=== PATIENT | male | born 1980 | race African-American/Black ===

== ENCOUNTER 2021-05-13 18:08 | Emergency (ER) | payer OTHER ==
[~2021-05-13] VITALS: Ht 172.7 cm; Wt 111.3 kg
--- NOTE | 2021-05-13 18:13 | PHYS DOC ---
General Adult EDM: Chief Complaint: CHEST PAIN HPI: HPI: """... I work nights... When I woke up this afternoon with chest pain here in my upper chest started about 1400 hrs..... 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 Pain is localized in the sternum and upper sternum area. Some radiation to left. Described as more of a discomfort. No pleuritic component. No history of previous cardiac issues. Patient has had GERD complaints in the past. Patient did take Pepcid and some antiacid but this was no relief to his discomfort. Initially pain is rated 7 -8 out of 10 currently rates it 5 out of 10. Patient does have a family history of father with IN at age 50. Patient denies any trauma. 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 Patient not had any recent travel outside the [place] area. No history of immune suppression. Up-to-date with vaccinations. Including Covid vaccination. Patient has not had this type of pain previously. (IVY BIRMINGHAM MD) Review of Systems: Review of Systems: Constitutional: Denies fever or chills Eyes: Denies change in visual acuity HENT: Denies nasal congestion or sore throat Respiratory: Denies cough or shortness of breath Cardiovascular: Complains of chest pain GI: Denies abdominal pain, nausea, vomiting, bloody stools or diarrhea : Denies dysuria Musculoskeletal: Denies back pain or joint pain Integument: Denies rash Neurologic: Denies headache, focal weakness or sensory changes Endocrine: Denies polyuria or polydipsia Lymphatic: Denies swollen glands Psychiatric: Denies depression or anxiety (IVY BIRMINGHAM MD) Family History: Family History: Father had an IN age 50 (IVY BIRMINGHAM MD) Current Medications: Current Meds: See nursing for home meds (IVY BIRMINGHAM MD) Allergies: Allergies: Allergies Coded Allergies Type Severity Reaction Last Updated Verified Sulfa (Sulfonamide Antibiotics) Allergy Intermediate 05/13/21 Yes (IVY BIRMINGHAM MD) Physical Exam: PE: Constitutional: Well developed, well nourished, mild distress, non-toxic appearance. [] HENT: Normocephalic, atraumatic, bilateral external ears normal, oropharynx moist, no oral exudates, nose normal. [] Eyes: PERRLA, EOMI, conjunctiva normal, no discharge. [] Neck: Normal range of motion, no tenderness, supple, no stridor. [] Cardiovascular:Bradycardia Heart rate regular rhythm, no murmur [. The] bedside monitor shows a sinus liz rhythm with no acute ectopy or morphology. Lungs & Thorax: Bilateral breath sounds equal at apex on auscultation [] Abdomen: Bowel sounds normal, soft, no tenderness, no masses, no pulsatile masses. [] Skin: Warm, dry, no erythema, no rash. [] Back: No tenderness, no CVA tenderness. [] Extremities: No tenderness, no cyanosis, no clubbing, ROM intact, no edema. No cording appreciated Neurologic: Alert and oriented X 3, normal motor function, normal sensory function, no focal deficits noted. [] Psychologic: Affect normal, judgement normal, mood normal. [] (IVY BIRMINGHAM MD) EKG: EKG: My interpretation EKG shows a sinus bradycardia at 59 bpm. Left axis. Some nonspecific anterior lateral changes but no findings of acute STEMI of contrala teral changes. There is some hyperdynamic findings in V2 and 3 and 4.. Abnormal EKG [] time of EKG is 1808 hrs. My interpretation second EKG shows a sinus bradycardia at 52 bpm. Left axis. Anterior lateral and T wave abnormalities. Time of this EKG is 2036 hours My interpretation of 3r. EKG 1 shows a sinus bradycardia 59 bpm. Leftward axis and T wave anterior lateral changes. Abnormal EKG. Time this EKG is 0140 hrs. (IVY BIRMINGHAM MD) Radiology/Procedures: Radiology/Procedures: [][address] [address] IMAGING REPORT Signed PATIENT: IMTIAZ FRANCISCOUNT: [id number] : 1980 LOCATION: ER AGE: 40 SEX: M EXAM STATUS: REG ER ORD. PHYSICIAN: IVY BIRMINGHAM MD REASON: cp PROCEDURE: PORTABLE CHEST 1V EXAMINATION: Chest radiograph. VIEWS: Single AP view of the chest COMPARISON: None INDICATION:40 years, Male, chest pain. FINDINGS: Normal cardiomediastinal silhouette. No focal consolidation. No pleural effusion or pneumothorax. No acute osseous process. IMPRESSION: No acute cardiopulmonary process. Electronically signed by: Deb Meyers DO (05/13/2021 6:39 PM) [facility] DICTATED AND SIGNED BY: DEB MEYERS DO DATE: 05/13/211837 CC: IVY BIRMINGHAM MD; PCP,NO ~MTH0 0 (IVY BIRMINGHAM MD) Heart Score: C/O Chest Pain: Yes HEART Score for Chest Pain: HEART Score for Chest Pain Response (Comments) Value History Moderately Suspicious 1 ECG Nonspecific Repolarizatio 1 Age < 45 0 Risk Factors 1 or 2 Risk Factors 1 Troponin >3 x Normal Limit 2 Total 5 Risk Factors: Risk Factors: DM, Current or recent (<one month) smoker, HTN, HLP, family history of CAD, obesity. Risk Scores: Score 0 - 3: 2.5% MACE over next 6 weeks - Discharge Home Score 4 - 6: 20.3% MACE over next 6 weeks - Admit for Clinical Observation Score 7 - 10: 72.7% MACE over next 6 weeks - Early Invasive Strategies (IVY BIRMINGHAM MD) Course & Med Decision Making: Course & Med Decision Making Pertinent Labs and Imaging studies reviewed. (See chart for details) Discussed presentation, testing with tx. plan with Dr. Campbell and Dr. Vogel. . . Admit to Dr. Vogel. Chest discomfort at 0200 hrs. is 1/10. Critical Care- interpretation, discussion with cardiology -90 min. Impression: 1. Chest Pain 2. + Trop 0.050 to 0.574 to 1.715 3. Non-stemi IN 4. Bradycardia []See Dr. Woodson chart after 0600 shift change for details after that time. (IVY BIRMINGHAM MD) Course & Med Decision Making The patient's repeat troponin this morning was switched over to the new high- sensitivity type. The number was greater than 6000. This is difficult to compared to the other troponin testing. Either way it is quite elevated. I spoke with cardiology again and Debi, nurse practitioner with cardiology service spoke with communications media professor and they would like to transfer the patient to [facility] for cardiac cath today. The patient will go by ambulance. (ZURDO WOODSON DO) Dragon Disclaimer: Dragon Disclaimer: This electronic medical record was generated, in whole or in part, using a voice recognition dictation system. (IVY BIRMINGHAM MD) Departure Departure: Impression: Primary Impression: NSTEMI (non-ST elevated myocardial infarction) Disposition: 02 SHORT TERM HOSPITAL Admitting Physician: Mae Vogel (ZURDO WOODSON DO) Condition: GUARDED Dragon Disclaimer This chart was dictated in whole or in part using Voice Recognition software in a busy, high-work load, and often noisy Emergency Department environment. It may contain unintended and wholly unrecognized errors or omissions. (IVY BIRMINGHAM MD) IVY BIRMINGHAM MD May 13, 2021 18:13 ZURDO WOODSON DO May 14, 2021 09:52
[2021-05-13] MEDS ORDERED: IV RINGERS SOLUTION,LACTATED 1,000 ML IV SCH (18:30)
[2021-05-13] MEDS ORDERED: ASPIRIN 325 MG TABLET PO ONE (18:30)
--- NOTE | 2021-05-13 18:39 | EKG ---
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
--- NOTE | 2021-05-13 18:41 | RAD ---
EXAMINATION: Chest radiograph. VIEWS: Single AP view of the chest COMPARISON: None INDICATION:40 years, Male, chest pain. FINDINGS: Normal cardiomediastinal silhouette. No focal consolidation. No pleural effusion or pneumothorax. No acute osseous process. IMPRESSION: No acute cardiopulmonary process. Electronically signed by: Tae Meyers DO (05/13/2021 6:39 PM) [facility]
[2021-05-13 18:51] LABS: BASO % 0 % (0-3); EOS % 0 % (0-3); HEMATOCRIT 41.6 % (39.0-53.0); HEMOGLOBIN 14.1 g/dL (13.0-17.5); LYMPH % 20 % (24-48); MEAN CORPUSCULAR HEMOGLOBIN 31 pg (25-35); MEAN CORPUSCULAR HGB CONC 34 g/dL (31-37); MEAN CORPUSCULAR VOLUME 93 fL (79-100); MONO # 0.6 x10^3/uL (0.0-1.1); MONO % 6 % (0-9); NEUT # 7.2 x10^3uL (1.8-7.7); NEUT % 73 % (31-73); PLATELET COUNT 257 x10^3/uL (140-400); RED BLOOD COUNT 4.48 x10^6/uL (4.30-5.70); RED CELL DISTRIBUTION WIDTH 13.5 % (11.5-14.5); WHITE BLOOD COUNT 9.8 x10^3/uL (4.0-11.0)
[2021-05-13 18:58] LABS: CALCIUM 9.1 mg/dL (8.5-10.1); GFR 99.2; POTASSIUM 3.7 mmol/L (3.5-5.1)
[2021-05-13 19:10] LABS: ALBUMIN 3.8 g/dL (3.4-5.0); DIRECT BILIRUBIN 0.1 mg/dL (0.0-0.2); TOTAL BILIRUBIN 0.2 mg/dL (0.2-1.0); TOTAL PROTEIN 7.5 g/dL (6.4-8.2)
[2021-05-13 20:38] LABS: BARBITURATES NEG (NEG); BENZODIAZEPINES NEG (NEG); CANNABINOIDS NEG (NEG); COCAINE NEG (NEG); METHADONE NEG (NEG); OPIATES NEG (NEG); PHENCYCLIDINE NEG (NEG)
[2021-05-13 20:40] LABS: AMPHETAMINE/METHAMPHETAMINE NEG (NEG)
[2021-05-13 20:43] LABS: CLARITY,URINE CLEAR; COLOR,URINE YELLOW
[2021-05-13 20:44] LABS: BACTERIA,URINE FEW /HPF (0-FEW); BILIRUBIN,URINE NEG (NEG); GLUCOSE,URINE NEG (NEG); NITRITE,URINE NEG (NEG); RBC,URINE 0 /HPF (0-2); SQUAMOUS EPITHELIAL CELL,UR FEW /LPF; UROBILINOGEN,URINE 0.2 mg/dL (0.2 mg/dL)
[2021-05-13] MEDS ORDERED: ENOXAPARIN ** NOTE DOSE ** SYRINGE SQ ONE (21:00)
[2021-05-13] MEDS ORDERED: ACETAMINOPHEN 325 MG TABLET PO PRN (21:30)
[2021-05-13] MEDS ORDERED: ONDANSETRON PF 4 MG/2 ML VIAL. IVP PRN (21:30)
--- NOTE | 2021-05-13 22:57 | EKG ---
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
--- NOTE | 2021-05-14 01:49 | EKG ---
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
[2021-05-14 07:55] LABS: CALCIUM 8.7 mg/dL (8.5-10.1); CREATININE 0.9 mg/dL (0.7-1.3)
[2021-05-14] MEDS ORDERED: IPRATRPIUM/ALBUTEROL 0.5/2.5MG 3 ML NEBU. NEB SCH (08:00)
[2021-05-14] MEDS ORDERED: ASPIRIN CHEWABLE 81 MG TABLET. PO SCH (09:00)
[2021-05-14] MEDS ORDERED: ENOXAPARIN ** NOTE DOSE ** SYRINGE SQ SCH (09:00)
[2021-05-14 09:20] LABS: BASO % 0 % (0-3); EOS % 0 % (0-3); HEMATOCRIT 38.9 % (39.0-53.0); HEMOGLOBIN 13.1 g/dL (13.0-17.5); LYMPH # 2.5 x10^3/uL (1.0-4.8); LYMPH % 22 % (24-48); MEAN CORPUSCULAR HEMOGLOBIN 31 pg (25-35); MEAN CORPUSCULAR HGB CONC 34 g/dL (31-37); MEAN CORPUSCULAR VOLUME 92 fL (79-100); MONO # 0.8 x10^3/uL (0.0-1.1); MONO % 7 % (0-9); NEUT # 8.4 x10^3uL (1.8-7.7); NEUT % 71 % (31-73); PLATELET COUNT 248 x10^3/uL (140-400); RED BLOOD COUNT 4.21 x10^6/uL (4.30-5.70); RED CELL DISTRIBUTION WIDTH 13.6 % (11.5-14.5); WHITE BLOOD COUNT 11.8 x10^3/uL (4.0-11.0)
[2021-05-14 09:30] VITALS: BP 110/71
--- NOTE | 2021-05-14 10:12 | PDOC2 ---
CARDIAC CONSULT DATE OF CONSULT DOS: DATE: 05/14/21 TIME: 10:08 REASON FOR CONSULT Reason for Consult Chest pain REFERRING PHYSICIAN Referring Physician Dr. Hughes SOURCE Source: Chart review, Patient HPI History of Present Illness This is a 40 yo male who presented from local correctional facility secondary to chest pain. Patient reports pain began yesterday afternoon. Located in his central chest. Describes as aching, pressure. Seemed to be worse with laying down. No associated dizziness, diaphoresis, shortness of breath, or nausea/vomiting. Pain persisted and became more intense so he came to the ED for further evaluation and treatment. Troponin noted to be elevated which prompted this consult. PAST MEDICAL HISTORY GI: GERD PAST SURGICAL HISTORY Past Surgical History: No pertinent history FAMILY HISTORY Family History: Diabetes, Heart Disease SOCIAL HISTORY Smoke: No ALCOHOL: none Drugs: None Lives: Roommate (inmate ) CURRENT MEDICATIONS Current Medications Current Medications Aspirin (Sy Aspirin) 325 mg 1X ONCE PO Last administered on 05/13/21at 19:03; Start 05/13/21 at 18:30; Stop 05/13/21 at 18:41; Status DC Lactated Ringer's 1,000 ml @ 1,000 mls/hr Q1H IV Last administered on 05/13at 19:03; Start 05/13/21 at 18:30; Stop 05/13/21 at 19:29; Status DC Enoxaparin Sodium (Lovenox 100mg Syringe) 100 mg 1X ONCE SQ Last administered on 05/13/21at 21:48; Start 05/13/21 at 21:00; Stop 05/13/21 at 21:22; Status DC Ondansetron HCl (Zofran) 4 mg PRN Q4HRS PRN IVP NAUSEA/VOMITING; Start 05/13/21 at 21:30; Stop 05/14/21 at 21:29 Acetaminophen (Tylenol) 650 mg PRN Q4HRS PRN PO FEVER > 100.3'F; Start 05/13/21 at 21:30; Stop 05/14/21 at 21:29 Albuterol/ Ipratropium (Duoneb) 3 ml RTQID NEB ; Start 05/14/21 at 08:00; Stop 05/15/21 at 07:59 Aspirin (Aspirin Chewable) 81 mg DAILY PO Last administered on 05/14/21at 09:00; Start 05/14/21 at 09:00 Enoxaparin Sodium (Lovenox 100mg Syringe) 100 mg BID SQ Last administered on 05/14/21at 08:56; Start 05/14/21 at 09:00 ALLERGIES Allergies: Coded Allergies: Sulfa (Sulfonamide Antibiotics) (Verified Allergy, Intermediate, 05/13/21) ROS Review of Systems 14 point ROS conducted with pertinent positives noted above in hPI PHYSICAL EXAM General: Alert, Oriented X3, Cooperative, No acute distress HEENT: Atraumatic Lungs: Clear to auscultation, Normal air movement Heart: Regular rate Abdomen: Soft, No tenderness Extremities: No edema, Normal pulses Skin: No breakdown Neuro: Normal speech, Sensation intact Psych/Mental Status: Mental status NL, Mood NL MUSCULOSKELETAL: Osteoarthritic changes both hands VITALS Vital Signs Vital Signs Date Time Temp Pulse Resp B/P (MAP) Pulse Ox O2 Delivery O2 Flow Rate FiO2 05/14/21 09:30 65 18 110/71 (84) 99 05/14/21 08:55 Room Air 05/13/21 18:11 97.9 LABS LABS Laboratory Tests Test 05/13/21 18:24 05/13/21 19:55 05/13/21 21:25 05/14/21 00:26 White Blood Count 9.8 x10^3/uL (4.0-11.0) Red Blood Count 4.48 x10^6/uL (4.30-5.70) Hemoglobin 14.1 g/dL (13.0-17.5) Hematocrit 41.6 % (39.0-53.0) Mean Corpuscular Volume 93 fL (79-100) Mean Corpuscular Hemoglobin 31 pg (25-35) Mean Corpuscular Hemoglobin Concent 34 g/dL (31-37) Red Cell Distribution Width 13.5 % (11.5-14.5) Platelet Count 257 x10^3/uL (140-400) Neutrophils (%) (Auto) 73 % (31-73) Lymphocytes (%) (Auto) 20 % (24-48) Monocytes (%) (Auto) 6 % (0-9) Eosinophils (%) (Auto) 0 % (0-3) Basophils (%) (Auto) 0 % (0-3) Neutrophils # (Auto) 7.2 x10^3uL (1.8-7.7) Lymphocytes # (Auto) 2.0 x10^3/uL (1.0-4.8) Monocytes # (Auto) 0.6 x10^3/uL (0.0-1.1) Eosinophils # (Auto) 0.0 x10^3/uL (0.0-0.7) Basophils # (Auto) 0.0 x10^3/uL (0.0-0.2) Prothrombin Time 10.1 SEC (9.4-11.4) Prothromb Time International Ratio 1.0 (0.9-1.1) Activated Partial Thromboplast Time 23 SEC (23-33) D-Dimer ([place]) 0.36 mg/L (0.00-0.50) Sodium Level 140 mmol/L (136-145) Potassium Level 3.7 mmol/L (3.5-5.1) Chloride Level 103 mmol/L (98-107) Carbon Dioxide Level 28 mmol/L (21-32) Anion Gap 9 (6-14) Blood Urea Nitrogen 10 mg/dL (8-26) Creatinine 1.0 mg/dL (0.7-1.3) Estimated GFR (Cockcroft-Gault) 99.2 Glucose Level 108 mg/dL (70-99) Calcium Level 9.1 mg/dL (8.5-10.1) Magnesium Level 2.0 mg/dL (1.8-2.4) Total Bilirubin 0.2 mg/dL (0.2-1.0) Direct Bilirubin 0.1 mg/dL (0.0-0.2) Aspartate Amino Transf (AST/SGOT) 18 U/L (15-37) Alanine Aminotransferase (ALT/SGPT) 36 U/L (16-63) Alkaline Phosphatase 93 U/L (46-116) Creatine Kinase 129 U/L (39-308) Troponin I Quantitative 0.050 ng/mL (0-0.055) 0.574 ng/mL (0-0.055) 1.715 ng/mL (0-0.055) SY-Dks-B-Type Natriuretic Peptide 11 pg/mL (0-124) Total Protein 7.5 g/dL (6.4-8.2) Albumin 3.8 g/dL (3.4-5.0) Lipase 160 U/L (73-393) Urine Collection Type Unknown Urine Color Yellow Urine Clarity Clear Urine pH 5.5 Urine Specific [place] >=1.030 Urine Protein Trace (NEG-TRACE) Urine Glucose (UA) Neg mg/dL (NEG) Urine Ketones (Stick) Neg mg/dL (NEG) Urine Blood Neg (NEG) Urine Nitrite Neg (NEG) Urine Bilirubin Neg (NEG) Urine Urobilinogen Dipstick 0.2 mg/dL (0.2 mg/dL) Urine Leukocyte Esterase Neg (NEG) Urine RBC 0 /HPF (0-2) Urine WBC 1-4 /HPF (0-4) Urine Squamous Epithelial Cells Few /LPF Urine Bacteria Few /HPF (0-FEW) Urine Mucus Marked /LPF Urine Opiates Screen Neg (NEG) Urine Methadone Screen Neg (NEG) Urine Barbiturates Neg (NEG) Urine Phencyclidine Screen Neg (NEG) Urine Amphetamine/Methamphetamine Neg (NEG) Urine Benzodiazepines Screen Neg (NEG) Urine Cocaine Screen Neg (NEG) Urine Cannabinoids Screen Neg (NEG) Urine Ethyl Alcohol Neg (NEG) Test 05/14/21 07:34 05/14/21 08:06 Sodium Level 138 mmol/L (136-145) Potassium Level 4.0 mmol/L (3.5-5.1) Chloride Level 103 mmol/L (98-107) Carbon Dioxide Level 27 mmol/L (21-32) Anion Gap 8 (6-14) Blood Urea Nitrogen 9 mg/dL (8-26) Creatinine 0.9 mg/dL (0.7-1.3) Estimated GFR (Cockcroft-Gault) 112.0 Glucose Level 91 mg/dL (70-99) Calcium Level 8.7 mg/dL (8.5-10.1) Troponin I High Sensitivity 6277 ng/L (4-75) White Blood Count 11.8 x10^3/uL (4.0-11.0) Red Blood Count 4.21 x10^6/uL (4.30-5.70) Hemoglobin 13.1 g/dL (13.0-17.5) Hematocrit 38.9 % (39.0-53.0) Mean Corpuscular Volume 92 fL (79-100) Mean Corpuscular Hemoglobin 31 pg (25-35) Mean Corpuscular Hemoglobin Concent 34 g/dL (31-37) Red Cell Distribution Width 13.6 % (11.5-14.5) Platelet Count 248 x10^3/uL (140-400) Neutrophils (%) (Auto) 71 % (31-73) Lymphocytes (%) (Auto) 22 % (24-48) Monocytes (%) (Auto) 7 % (0-9) Eosinophils (%) (Auto) 0 % (0-3) Basophils (%) (Auto) 0 % (0-3) Neutrophils # (Auto) 8.4 x10^3uL (1.8-7.7) Lymphocytes # (Auto) 2.5 x10^3/uL (1.0-4.8) Monocytes # (Auto) 0.8 x10^3/uL (0.0-1.1) Eosinophils # (Auto) 0.0 x10^3/uL (0.0-0.7) Basophils # (Auto) 0.0 x10^3/uL (0.0-0.2) ASSESSMENT/PLAN Assessment/Plan 1. Chest pain with typical features 2. NSTEMI 3. GERD Recommendations ASA therapy Received Lovenox treatment dosing Lipids Echo to assess LV systolic function Given symptomatology in the setting of NSTEMI, recommend cardiac catheterization with possible PCI. R/b/a discussed with patient and he is agreeable Keep NPO Will transfer to [facility] for [facility] SABINE ALBERT APRN May 14, 2021 10:12
[2021-05-14 15:09] LABS: THYROID STIM HORMONE (TSH) 1.488 uIU/mL (0.358-3.740)
== END 2021-05-14 10:55 | disposition short-term general hospital (02) ==
LOC: ER 18:08 → EEVIPCON 18:08 → ER 05-14 10:55
DX: I21.4 Non-ST elevation (NSTEMI) myocardial infarction (principal); R00.1 Bradycardia, unspecified; Z20.822 Contact with and (suspected) exposure to COVID-19; Z88.2 Allergy status to sulfonamides
CPT/HCPCS: 36415; 71045; 80048; 80061; 80076; 80307; 81001; 82550; 83690; 83735; 83880; 84443; 84484; 85025; 85379; 85610; 85730; 93005; 96360; 96372; 99291; 99292; C9803; J1650; J7120; U0003; 99285-25